=== PATIENT | male | born 1995 | race Hispanic/Latino ===

== ENCOUNTER 2022-10-03 13:04 | Emergency (ER) | payer OTHER ==
[~2022-10-03] VITALS: Ht 165.1 cm; Wt 149.7 kg
[2022-10-03 13:49] VITALS: BP 138/81; PULSE 89; RESP 16; O2SAT 96
[2022-10-03] MEDS ORDERED: CLIN-141 PO (17:13)
== END 2022-10-03 20:15 | disposition home or self-care (01) ==
LOC: EDH 13:04
DX: L03.115 Cellulitis of right lower limb (principal); F17.200 Nicotine dependence, unspecified, uncomplicated